=== PATIENT | female | born 1985 | race Two or more races ===

== ENCOUNTER 2016-09-30 14:04 | Emergency (ER) | payer BC ==
[2016-09-30] MEDS ORDERED: HYDROCODONE/APAP 10/325MG 1 EA TABLET ONE (14:23)
[2016-09-30] MEDS ORDERED: ONDANSETRON 4 MG TAB.RAPDIS ONE (14:23)
[2016-09-30] MEDS ORDERED: HYDROCODONE/APAP 10/325MG 1 EA TABLET PO ONE (14:30)
[2016-09-30] MEDS ORDERED: ONDANSETRON 4 MG TAB.RAPDIS PO ONE (14:30)
== END 2016-09-30 16:02 | disposition home or self-care (01) ==
DX: M54.2 Cervicalgia (principal); M25.512 Pain in left shoulder; V43.52XA Car driver injured in collision with other type car in traffic accident, initial encounter; Y93.89 Activity, other specified; Y92.89 Other specified places as the place of occurrence of the external cause; Y99.9 Unspecified external cause status
CPT/HCPCS: 71010; 72125; 73030; 99284; A4606; L0172; Q0162; Z7610